=== PATIENT | male | born 1965 | race Caucasian/White ===

== ENCOUNTER 2021-07-24 04:18 | Emergency (ER) | payer OTHER ==
[2021-07-24] MEDS ORDERED: SODIUM CHLORIDE 0.9% 500 ML 500 ML IV STA (04:35)
[2021-07-24 04:48] VITALS: BP 162/84; PULSE 85; RESP 16; TEMP 98.4
[2021-07-24] MEDS ORDERED: diphenhydrAMINE 50 MG/ML 1 ML VIAL IVP STA (05:23)
[2021-07-24] MEDS ORDERED: ONDANSETRON 4 MG/2 ML VIAL IVP STA (05:23)
--- NOTE | 2021-07-24 05:25 | ED ---
Weakness HPI - General Chief complaint: Dizziness Stated complaint: Dizziness Time Seen by Provider: 07/24/21 04:29 Source: patient, EMS, RN notes reviewed, old records reviewed Mode of arrival: EMS Limitations: no limitations - History of Present Illness Initial comments: This is a 36-year-old male to the emergency department for evaluation. Patient presents today for evaluation of vertiginous type symptoms. Complains of dizziness that started yesterday that has Progressed. Worsening change in position. Was gets up and moves. Occasionally worse with ambulation, sometimes a little off balance. No history of trauma no fevers. No ear pain or headaches. MD Complaint: difficulty walking -: days(s) Location: generalized Severity: mild Severity scale (1-10): 3 Consistency: intermittent Improves with: none Worsens with: movement Context: other (none) Associated Symptoms: denies other symptoms - Related Data Previous Rx's Medication Instructions Recorded Meclizine [Antivert] 25 mg PO TID #15 tab 07/24/21 Ondansetron Odt [Zofran ODT] 4 mg PO Q8HR PRN #10 tab 07/24/21 Allergies Allergy/AdvReac Type Severity Reaction Status Date / Time No Known Allergies Allergy Verified 07/24/21 05:44 Review of Systems ROS Statement: Those systems with pertinent positive or pertinent negative responses have been documented in the HPI. ROS Other: All systems not noted in ROS Statement are negative. Past Medical History History of Any Multi-Drug Resistant Organisms: None Reported Past Psychological History: No Psychological Hx Reported Smoking Status: Unknown if ever smoked Past Alcohol Use History: None Reported Past Drug Use History: None Reported General Exam Limitations: no limitations General appearance: alert, in no apparent distress Head exam: Present: atraumatic, normocephalic, normal inspection Eye exam: Present: normal appearance, PERRL, EOMI, nystagmus. Absent: scleral icterus, conjunctival injection, periorbital swelling ENT exam: Present: normal exam, mucous membranes moist Neck exam: Present: normal inspection. Absent: tenderness, meningismus, lymphadenopathy Respiratory exam: Present: normal lung sounds bilaterally. Absent: respiratory distress, wheezes, rales, rhonchi, stridor Cardiovascular Exam: Present: regular rate, normal rhythm, normal heart sounds. Absent: systolic murmur, diastolic murmur, rubs, gallop, clicks GI/Abdominal exam: Present: soft, normal bowel sounds. Absent: distended, tenderness, guarding, rebound, rigid Extremities exam: Present: normal inspection, full ROM, normal capillary refill. Absent: tenderness, pedal edema, joint swelling, calf tenderness Back exam: Present: normal inspection Neurological exam: Present: alert, oriented X3, CN II-XII intact Psychiatric exam: Present: normal affect, normal mood Skin exam: Present: warm, dry, intact, normal color. Absent: rash Course Vital Signs 07/24/21 04:45 Temperature 98.4 F Pulse Rate 85 Respiratory 16 Rate Blood Pressure 162/84 O2 Sat by Pulse 98 Oximetry - Reevaluation(s) Reevaluation #1: Medical record is reviewed Symptoms improved here in the ER Patient informed results and questions answered EKG Findings - EKG Comments: EKG Findings:: EKG is sinus rhythm 69 NE 128 QRS 90 QTC 40 to Medical Decision Making - Medical Decision Making 56 male to the emergency department for evaluation patient presents today for evaluation of a for congestive symptoms. CT is negative for acute disease patient's able to amply without ataxia and can be discharged home - Lab Data Result diagrams: 07/24/21 05:43 07/24/21 05:43 Lab Results 07/24/21 07/24/21 07/24/21 Range/Units 05:43 05:43 05:43 WBC 8.6 (3.8-10.6) k/uL RBC 4.83 (4.30-5.90) m/uL Hgb 14.9 (13.0-17.5) gm/dL Hct 45.3 (39.0-53.0) % MCV 93.8 (80.0-100.0) fL MCH 30.9 (25.0-35.0) pg MCHC 32.9 (31.0-37.0) g/dL RDW 13.7 (11.5-15.5) % Plt Count 278 (150-450) k/uL MPV 7.0 Neutrophils % 70 % Lymphocytes % 19 % Monocytes % 6 % Eosinophils % 3 % Basophils % 1 % Neutrophils # 6.0 (1.3-7.7) k/uL Lymphocytes # 1.7 (1.0-4.8) k/uL Monocytes # 0.5 (0-1.0) k/uL Eosinophils # 0.3 (0-0.7) k/uL Basophils # 0.1 (0-0.2) k/uL PT 9.7 (9.0-12.0) sec INR 0.9 (<1.2) APTT 20.5 L (22.0-30.0) sec Sodium 140 (137-145) mmol/L Potassium 4.0 (3.5-5.1) mmol/L Chloride 108 H (98-107) mmol/L Carbon Dioxide 27 (22-30) mmol/L Anion Gap 5 mmol/L BUN 11 (9-20) mg/dL Creatinine 0.75 (0.66-1.25) mg/dL Est GFR (CKD-EPI)AfAm >90 (>60 ml/min/1.73 sqM) Est GFR (CKD-EPI)NonAf >90 (>60 ml/min/1.73 sqM) Glucose 112 H (74-99) mg/dL Plasma Lactic Acid Estrada (0.7-2.0) mmol/L Calcium 9.1 (8.4-10.2) mg/dL Phosphorus 2.6 (2.5-4.5) mg/dL Magnesium 1.8 (1.6-2.3) mg/dL Total Bilirubin 1.3 (0.2-1.3) mg/dL AST 16 L (17-59) U/L ALT 12 (4-49) U/L Alkaline Phosphatase 57 (38-126) U/L Troponin I (0.000-0.034) ng/mL NT-Pro-B Natriuret Pep pg/mL Total Protein 6.4 (6.3-8.2) g/dL Albumin 3.9 (3.5-5.0) g/dL Urine Color Urine Appearance (Clear) Urine pH (5.0-8.0) Ur Specific [place] (1.001-1.035) Urine Protein (Negative) Urine Glucose (UA) (Negative) Urine Ketones (Negative) Urine Blood (Negative) Urine Nitrite (Negative) Urine Bilirubin (Negative) Urine Urobilinogen (<2.0) mg/dL Ur Leukocyte Esterase (Negative) 07/24/21 07/24/21 07/24/21 Range/Units 05:43 05:43 05:43 WBC (3.8-10.6) k/uL RBC (4.30-5.90) m/uL Hgb (13.0-17.5) gm/dL Hct (39.0-53.0) % MCV (80.0-100.0) fL MCH (25.0-35.0) pg MCHC (31.0-37.0) g/dL RDW (11.5-15.5) % Plt Count (150-450) k/uL MPV Neutrophils % % Lymphocytes % % Monocytes % % Eosinophils % % Basophils % % Neutrophils # (1.3-7.7) k/uL Lymphocytes # (1.0-4.8) k/uL Monocytes # (0-1.0) k/uL Eosinophils # (0-0.7) k/uL Basophils # (0-0.2) k/uL PT (9.0-12.0) sec INR (<1.2) APTT (22.0-30.0) sec Sodium (137-145) mmol/L Potassium (3.5-5.1) mmol/L Chloride (98-107) mmol/L Carbon Dioxide (22-30) mmol/L Anion Gap mmol/L BUN (9-20) mg/dL Creatinine (0.66-1.25) mg/dL Est GFR (CKD-EPI)AfAm (>60 ml/min/1.73 sqM) Est GFR (CKD-EPI)NonAf (>60 ml/min/1.73 sqM) Glucose (74-99) mg/dL Plasma Lactic Acid Estrada 1.7 (0.7-2.0) mmol/L Calcium (8.4-10.2) mg/dL Phosphorus (2.5-4.5) mg/dL Magnesium (1.6-2.3) mg/dL Total Bilirubin (0.2-1.3) mg/dL AST (17-59) U/L ALT (4-49) U/L Alkaline Phosphatase (38-126) U/L Troponin I <0.012 (0.000-0.034) ng/mL NT-Pro-B Natriuret Pep 37 pg/mL Total Protein (6.3-8.2) g/dL Albumin (3.5-5.0) g/dL Urine Color Urine Appearance (Clear) Urine pH (5.0-8.0) Ur Specific [place] (1.001-1.035) Urine Protein (Negative) Urine Glucose (UA) (Negative) Urine Ketones (Negative) Urine Blood (Negative) Urine Nitrite (Negative) Urine Bilirubin (Negative) Urine Urobilinogen (<2.0) mg/dL Ur Leukocyte Esterase (Negative) 07/24/21 Range/Units 05:57 WBC (3.8-10.6) k/uL RBC (4.30-5.90) m/uL Hgb (13.0-17.5) gm/dL Hct (39.0-53.0) % MCV (80.0-100.0) fL MCH (25.0-35.0) pg MCHC (31.0-37.0) g/dL RDW (11.5-15.5) % Plt Count (150-450) k/uL MPV Neutrophils % % Lymphocytes % % Monocytes % % Eosinophils % % Basophils % % Neutrophils # (1.3-7.7) k/uL Lymphocytes # (1.0-4.8) k/uL Monocytes # (0-1.0) k/uL Eosinophils # (0-0.7) k/uL Basophils # (0-0.2) k/uL PT (9.0-12.0) sec INR (<1.2) APTT (22.0-30.0) sec Sodium (137-145) mmol/L Potassium (3.5-5.1) mmol/L Chloride (98-107) mmol/L Carbon Dioxide (22-30) mmol/L Anion Gap mmol/L BUN (9-20) mg/dL Creatinine (0.66-1.25) mg/dL Est GFR (CKD-EPI)AfAm (>60 ml/min/1.73 sqM) Est GFR (CKD-EPI)NonAf (>60 ml/min/1.73 sqM) Glucose (74-99) mg/dL Plasma Lactic Acid Estrada (0.7-2.0) mmol/L Calcium (8.4-10.2) mg/dL Phosphorus (2.5-4.5) mg/dL Magnesium (1.6-2.3) mg/dL Total Bilirubin (0.2-1.3) mg/dL AST (17-59) U/L ALT (4-49) U/L Alkaline Phosphatase (38-126) U/L Troponin I (0.000-0.034) ng/mL NT-Pro-B Natriuret Pep pg/mL Total Protein (6.3-8.2) g/dL Albumin (3.5-5.0) g/dL Urine Color Light Yellow Urine Appearance Clear (Clear) Urine pH 5.5 (5.0-8.0) Ur Specific [place] 1.005 (1.001-1.035) Urine Protein Negative (Negative) Urine Glucose (UA) Negative (Negative) Urine Ketones Negative (Negative) Urine Blood Negative (Negative) Urine Nitrite Negative (Negative) Urine Bilirubin Negative (Negative) Urine Urobilinogen <2.0 (<2.0) mg/dL Ur Leukocyte Esterase Negative (Negative) - Radiology Data Radiology results: report reviewed (CT brain is negative for acute disease), image reviewed Disposition Clinical Impression: Benign paroxysmal positional vertigo Disposition: HOME SELF-CARE Condition: Good Instructions (If sedation given, give patient instructions): Vertigo (ED) Prescriptions: Meclizine [Antivert] 25 mg PO TID #15 tab Ondansetron Odt [Zofran ODT] 4 mg PO Q8HR PRN #10 tab PRN Reason: nausea/vomiting Is patient prescribed a controlled substance at d/c from ED?: No Referrals: Bill Loza MD [Primary Care Provider] - 1-2 days
--- NOTE | 2021-07-24 05:46 | CT ---
EXAMINATION TYPE: CT brain wo con DATE OF EXAM: 07/24/2021 COMPARISON: None HISTORY: dizziness/vertigo CT DLP: 1064.6 mGycm Automated exposure control for dose reduction was used. Images of the brain obtained without contrast. FINDINGS: The ventricles have normal size. There is no mass effect or midline shift. There is no sign of intrac ranial hemorrhage. Calvarium is intact. Skull base is intact. There is incomplete aeration of the lef t mastoid sinuses. IMPRESSION: Negative unenhanced head CT scan. 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
[2021-07-24 06:09] LABS: Basophils # (A) 0.1 k/uL (0-0.2); Basophils % (A) 1 %; Eosinophils # (A) 0.3 k/uL (0-0.7); Eosinophils % (A) 3 %; HCT 45.3 % (39.0-53.0); HGB 14.9 gm/dL (13.0-17.5); Lymphocytes # (A) 1.7 k/uL (1.0-4.8); Lymphocytes % (A) 19 %; MCH 30.9 pg (25.0-35.0); MCHC 32.9 g/dL (31.0-37.0); MCV 93.8 fL (80.0-100.0); Monocytes # (A) 0.5 k/uL (0-1.0); Monocytes % (A) 6 %; Neutrophils % (A) 70 %; Platelet Count 278 k/uL (150-450); RBC 4.83 m/uL (4.30-5.90); RDW 13.7 % (11.5-15.5); WBC 8.6 k/uL (3.8-10.6)
[2021-07-24 06:27] LABS: Appearance,Urine Clear (Clear); Bilirubin,Urine Negative (Negative); Blood,Urine Negative (Negative); Color,Urine Light Yellow; Glucose,Urine (UA) Negative (Negative); Ketones,Urine Negative (Negative); Leukocyte Esterase,Urine Negative (Negative); Nitrite,Urine Negative (Negative); PH, Urine 5.5 (5.0-8.0); Protein,Urine Negative (Negative); Specific Gravity,Urine 1.005 (1.001-1.035); Urobilinogen,Urine <2.0 mg/dL (<2.0)
[2021-07-24 06:28] LABS: ALT 12 U/L (4-49); AST 16 U/L (17-59); African American GFR (CKD) >90 (>60 ml/min/1.73 sqM); Albumin 3.9 g/dL (3.5-5.0); Alkaline Phosphatase 57 U/L (38-126); Anion Gap 5 mmol/L; Blood Urea Nitrogen 11 mg/dL (9-20); Calcium 9.1 mg/dL (8.4-10.2); Carbon Dioxide 27 mmol/L (22-30); Chloride 108 mmol/L (98-107); Glucose 112 mg/dL (74-99); Magnesium 1.8 mg/dL (1.6-2.3); Non-African American GFR(CKD) >90 (>60 ml/min/1.73 sqM); Phosphorus 2.6 mg/dL (2.5-4.5); Sodium 140 mmol/L (137-145); Total Bilirubin 1.3 mg/dL (0.2-1.3); Total Protein 6.4 g/dL (6.3-8.2)
[2021-07-24 06:39] LABS: INR 0.9 (<1.2); Prothrombin Time 9.7 sec (9.0-12.0)
[2021-07-24 06:49] LABS: Partial Thromboplastin Time 20.5 sec (22.0-30.0)
[2021-07-24] MEDS ORDERED: ONDANSETRON 4 MG ODT STARTER PACK 2 TAB BTL PO STA (06:55)
[2021-07-24] MEDS ORDERED: MECLIZINE 25 MG TAB PO STA (06:55)
[2021-07-24] MEDS ORDERED: MECLIZINE 12.5 MG TAB PO STA (06:55)
== END 2021-07-24 07:17 | disposition home or self-care (01) ==
LOC: EC 04:18
DX: H81.10 Benign paroxysmal vertigo, unspecified ear (principal)
CPT/HCPCS: 36415; 93005; 83880; 80053; 83605; 83735; 84100; 84484; 85025; 85610; 85730; 81003; 70450; 99285; 96374; 96375; J1200; J2405; S0119

== ENCOUNTER → 2022-10-21 | Outpatient (CLI) | payer OTHER ==
--- NOTE | 2022-10-25 08:17 | MR ---
EXAMINATION TYPE: MR foot LT wo/w con DATE OF EXAM: 10/21/2022 COMPARISON: NONE HISTORY: 57-year-old male G5 7.62, Lt foot lesion of planter nerve Technique: Multiplanar, multisequence images of the left foot were obtained before and after administ ration of 7 mL intravenous Gadavist gadolinium contrast. FINDINGS: There is mild age-related marginal spurring at the first MTP joint. No acute or healing fracture is seen. Lisfranc ligament visualized intact. Preserved fatty signal in the sinus Tarsi. Subtle small effusions throughout the MTP joints. No significant intermetatarsal bursal effusion is identified. Note that this was a large field-of-vi ew the exam which limits assessment for Fisher's neuroma. However, we do note some soft tissue thicke kristel located between the third-fourth MTP joints measuring 7 mm long by 8 mm craniocaudal by 3 mm wid e. Refer to coronal image 14. Some subtle postcontrast enhancement may be present here. IMPRESSION: Exam somewhat limited by large field of view. Suspect a 7 x 8 x 3 mm Fisher's neuroma at the third we bspace. Correlate for any localizing symptoms.
== END | disposition home or self-care (01) ==
LOC: RADMRIMAIN 08:59
PROVIDERS: ATTEND Podiatrist Foot & Ankle Surgery
DX: G57.62 Lesion of plantar nerve, left lower limb (principal)
CPT/HCPCS: 73720; A9585

== ENCOUNTER 2024-01-07 11:43 | Emergency (ER) | payer OTHER ==
--- NOTE | 2024-01-07 11:57 | ED ---
Back Pain HPI - General Stated Complaint: Back Pain Time Seen by Provider: 01/07/24 11:56 - History of Present Illness Initial Comments: 58-year-old male with history of herniated discs presenting with back pain x 4 days. States this feels like a flareup of his chronic back pain. He is able to ambulate but with pain. Denies trauma or injury. He usually takes naproxen for pain but states that it has not been helping over the past few days. Denies loss of bowel or bladder control. Denies numbness or tingling in the legs. He has not had imaging of his back in over 2 years. - Related Data Previous Rx's Medication Instructions Recorded Meclizine [Antivert] 25 mg PO TID #15 tab 07/24/21 Ondansetron Odt [Zofran ODT] 4 mg PO Q8HR PRN #10 tab 07/24/21 Lidocaine 5% Patch [Lidoderm 5% 1 patch TOPICAL DAILY 7 Days #7 01/07/24 Patch] patch methocarbamoL [Robaxin] 500 mg PO TID PRN #15 tab 01/07/24 Allergies Allergy/AdvReac Type Severity Reaction Status Date / Time No Known Allergies Allergy Verified 07/24/21 05:44 Review of Systems ROS Statement: Those systems with pertinent positive or pertinent negative responses have been documented in the HPI. ROS Other: All systems not noted in ROS Statement are negative. Past Medical History History of Any Multi-Drug Resistant Organisms: None Reported Past Psychological History: No Psychological Hx Reported Smoking Status: Unknown if ever smoked Past Alcohol Use History: None Reported Past Drug Use History: None Reported General Exam - General Exam Comments Initial Comments: Visual Physical Exam General: Well-appearing, nontoxic, no acute distress. Head: Normocephalic, atraumatic Eyes: PERRLA, EOMI ENT: Airway patent Chest: Nonlabored breathing Skin: No visual rash, normal skin tone Neuro: Alert and oriented 3 Musculoskeletal: No gross abnormalities General appearance: alert, in no apparent distress Head exam: Present: atraumatic, normocephalic, normal inspection Eye exam: Present: normal appearance, PERRL, EOMI. Absent: scleral icterus, conjunctival injection, periorbital swelling ENT exam: Present: normal exam, mucous membranes moist Cardiovascular Exam: Present: regular rate, normal rhythm, normal heart sounds. Absent: systolic murmur, diastolic murmur, rubs, gallop, clicks GI/Abdominal exam: Present: soft, normal bowel sounds. Absent: distended, ten derness, guarding, rebound, rigid Back exam: Present: normal inspection, full ROM, other (Full strength and range of motion of bilateral hips. No saddle anesthesia. Full sensation and dorsalis pedis pulses of bilateral lower extremities). Absent: tenderness, CVA tenderness (R), CVA tenderness (L), paraspinal tenderness, rash noted Neurological exam: Present: alert Psychiatric exam: Present: normal affect, normal mood Skin exam: Present: warm, dry, intact, normal color. Absent: rash Course Vital Signs 01/07/24 01/07/24 12:26 15:43 Temperature 97.9 F 97.9 F Pulse Rate 69 73 Respiratory 16 18 Rate Blood Pressure 150/61 137/76 O2 Sat by Pulse 98 96 Oximetry Medical Decision Making - Medical Decision Making I completed the quick note portion of this chart signed Karen Singh PA-C Was pt. sent in by a medical professional or institution ([facility], [employer], urgent care, hospital, or shelter...) When possible be specific @ -No Did you speak to anyone other than the patient for history (EMS, parent, family, police, friend...)? What history was obtained from this source @ -No Did you review nursing and triage notes (agree or disagree)? Why? @ -I reviewed and agree with nursing and triage notes Were old charts reviewed (outside hosp., previous admission, EMS record, old EKG, old radiological studies, urgent care reports/EKG's, shelter records)? Report findings @ -No old charts were reviewed Differential Diagnosis (chest pain, altered mental status, abdominal pain women, abdominal pain men, vaginal bleeding, weakness, fever, dyspnea, syncope, headache, dizziness, GI bleed, back pain, seizure, CVA, palpatations, mental health, musculoskeletal)? @ -Differential Musculoskeletal Muscular strain, contusion, ligament sprain, fracture, arthritis, septic arthritis, bursitis, cellulitis, muscle spasm, nerve compression, DVT, arterial occlusion, herpes zoster, electrolyte abnormality, tumor.... This is not meant to be in all inclusive list EKG interpreted by me (3pts min.). @ -None X-rays interpreted by me (1pt min.). @ -X-ray of lumbar spine reveals no acute fracture, there is moderate multilevel disc degeneration. CT interpreted by me (1pt min.). @ -None done U/S interpreted by me (1pt. min.). @ -None done What testing was considered but not performed or refused? (CT, X-rays, U/S, labs)? Why? @ -None What meds were considered but not given or refused? Why? @ -None Did you discuss the management of the patient with other professionals (professionals i.e. DrJhonatan, PA, [employer], lab, RT, psych nurse, aids social worker, clutch mechanic, teacher, financial compliance officer, watch case polisher)? Give summary @ -No Was smoking cessation discussed for >3mins.? @ -No Was critical care preformed (if so, how long)? @ -No Were there social determinants of health that impacted care today? How? (Homelessness, low income, unemployed, alcoholism, drug addiction, transportation, low edu. Level, literacy, decrease access to med. care, penitentiary, rehab)? @ -No Was there de-escalation of care discussed even if they declined (Discuss DNR or withdrawal of care, Hospice)? DNR status @ -No What co-morbidities impacted this encounter? (DM, HTN, Smoking, COPD, CAD, Cancer, CVA, ARF, Chemo, Hep., AIDS, mental health diagnosis, sleep apnea, morbid obesity)? @ -None Was patient admitted / discharged? Hospital course, mention meds given and route, prescriptions, significant lab abnormalities, going to OR and other pertinent info. @ -Patient was discharged. Patient was seen and evaluated for acute flareup of chronic low back pain. Patient is neurovascularly intact. No red flag symptoms. Patient is given IM Toradol and IM Norflex. X-ray reveals no acute fracture, there is moderate multilevel disc degeneration. Upon reevaluation, patient reports that symptoms have improved. Advise close follow-up with PCP. Prescribed lidocaine patches and Robaxin. Strict return parameters discussed. Patient shows understanding and agrees to plan. Case discussed with Dr. Pyle. Patient discharged in stable condition. Undiagnosed new problem with uncertain prognosis? @ -No Drug Therapy requiring intensive monitoring for toxicity (Heparin, Nitro, Insulin, Cardizem)? @ -No Were any procedures done? @ -No Diagnosis/symptom? @ -Acute flareup of chronic back pain Acute, or Chronic, or Acute on Chronic? @ -Acute on chronic Uncomplicated (without systemic symptoms) or Complicated (systemic symptoms)? @ -Uncomplicated Side effects of treatment? @ -No Exacerbation, Progression, or Severe Exacerbation? @ -No Poses a threat to life or bodily function? How? (Chest pain, [place], [place], pneumonia, PE, COPD, DKA, ARF, appy, cholecystitis, CVA, Diverticulitis, Homicidal, Suicidal, threat to staff... and all critical care pts) @ -No Disposition Clinical Impression: Acute on chronic back pain Disposition: HOME SELF-CARE Condition: Stable Instructions (If sedation given, give patient instructions): Acute Low Back Pain (ED) Additional Instructions: Please return to the Emergency Department if symptoms worsen or any other concerns. Prescriptions: Lidocaine 5% Patch [Lidoderm 5% Patch] 1 patch TOPICAL DAILY 7 Days #7 patch methocarbamoL [Robaxin] 500 mg PO TID PRN #15 tab PRN Reason: muscle spasms Is patient prescribed a controlled substance at d/c from ED?: No Referrals: Bill Loza MD [Primary Care Provider] - 1-2 days Time of Disposition: 15:44
[2024-01-07 12:29] VITALS: TEMP 97.9
[2024-01-07] MEDS: KETOROLAC 15 MG/ML 1 ML VIAL IM STA (14:51)
[2024-01-07] MEDS: ORPHENADRINE 30 MG/ML 2 ML VIAL IM STA (14:51)
--- NOTE | 2024-01-07 15:19 | XR ---
EXAMINATION TYPE: XR lumbar spine 2 or 3V DATE OF EXAM: 01/07/2024 3:11 PM CLINICAL INDICATION:Male, 58 years old with history of low back pain; COMPARISON: None TECHNIQUE: XR lumbar spine 2 or 3V - Frontal, lateral and coned in L5-S1 lateral views of the spine. FINDINGS: No evidence of any acute osseous pathology. No evidence of loss of vertebral body height i s seen. There is normal alignment of the lumbar vertebral bodies. Scattered disc space narrowing. Mul tilevel marginal osteophyte formation throughout the visualized spine. There is facet joint arthropat hy throughout the spine. Scattered at least mild neural foraminal stenosis. IMPRESSION: 1. No acute fracture. 2. Moderate multilevel disc degeneration.
[2024-01-07 15:45] VITALS: BP 137/76; PULSE 73; RESP 18
== END 2024-01-07 15:48 | disposition home or self-care (01) ==
LOC: EC 11:43
DX: G89.29 Other chronic pain (principal); M54.9 Dorsalgia, unspecified
CPT/HCPCS: 72100; 99283; 96372 ×2; J2360; J1885

== ENCOUNTER → 2024-10-02 | Outpatient (CLI) | payer OTHER ==
--- NOTE | 2024-10-02 08:57 | US ---
EXAMINATION TYPE: US abdomen complete DATE OF EXAM: 10/02/2024 COMPARISON: NONE CLINICAL INDICATION: Male, 59 years old with history of R10.30 LOWER ABD PAIN UNSPECIFIED; Pain TECHNIQUE: Grayscale and color Doppler imaging of the abdomen was performed. FINDINGS: EXAM MEASUREMENTS: Liver Length: 18.9 cm Gallbladder Wall: 0.16 cm CBD: 0.29 cm, color Doppler imaging was utilized to isolate the common bile duct for measurement. Spleen: 9.5 cm Right Kidney: 9.9 x 5.9 x 4.5 cm Left Kidney: 9.2 x 4.7 x 5.7 cm AIR [place] NOTES: Exam is limited due to gas. Pancreas: Limited visibility. Tail was obscured. Liver: Enlarged, very coarse/heterogeneous Gallbladder: Appears anechoic Evidence for sonographic Egan's sign: No CBD: Appears wnl Spleen: Appears wnl Right Kidney: wnl, No hydronephrosis, calculi or masses seen Left Kidney: wnl, No hydronephrosis, calculi or masses seen Upper IVC: wnl Abd Aorta: Portion of distal aorta was limited due to gas. Visualized pancreas unremarkable. Portions obscured by overlying bowel gas. Mild hepatomegaly. Visual ized liver heterogeneously hyperechoic. This limits evaluation for focal masses. Finding likely on ba sis of mild diffuse fatty infiltration. No shadowing mobile gallstones. Kidneys symmetric and within normal limits in size without hydronephrosis seen bilaterally. Spleen is normal in size. IMPRESSION: Suboptimal study without acute findings seen to account for patient's symptoms. [facility], , 10/02/2024 8:55 AM
== END | disposition home or self-care (01) ==
LOC: RADUSWWP 07:57
PROVIDERS: ATTEND Internal Medicine Gastroenterology
DX: R16.0 Hepatomegaly, not elsewhere classified (principal)
CPT/HCPCS: 76700